=== PATIENT | male | born 1985 | race Caucasian/White ===

== ENCOUNTER 2020-01-31 12:32 | Emergency (ER) | payer BC ==
[2020-01-31] MEDS ORDERED: GI Cocktail Oral Solution 30 ML PO ONE (13:02)
--- NOTE | 2020-01-31 13:02 | EDM.PDOC ---
ED HPI GENERAL MEDICAL PROBLEM - General Chief Complaint: Chest Pain Stated Complaint: CHEST PAINS STARTED HEARTBURN Time Seen by Provider: 01/31/20 12:51 Source of Information: Reports: Patient, RN History Limitations: Reports: No Limitations - History of Present Illness INITIAL COMMENTS - FREE TEXT/NARRATIVE: 34-year-old male who presents to the ER with complaints of chest pain 9 hours. Patient reports chest pain began at 3 AM and it felt more like a heartburn. He took at tums and his discomfort subsided a little bit. Pain is rated 5/10 with 10 being the worst and described as pressure which is nonradiating. He reports vomiting twice prior to ER visit. He denies nausea at this time. He reports eating meat balls and noodles with 6 cans of erlinda coke last night. Denies any personal or family medical history of heart problems. he reports that he had a seizure when drinking before gi and was seen in the ER at which point he was told he had hypokalemia. He reports this was treated with bananas but he never went back into the clinic for recheck. he denies shortness of breath, palpitations, fever, chills, leg swelling at this time. Onset: Today Duration: Hour(s): (9 hours ago) Location: Reports: Chest Quality: Reports: Pressure Severity: Moderate Worsens with: Reports: None Associated Symptoms: Reports: Chest Pain Middle Chest Pain Score (Numeric/FACES): 7 - Related Data Allergies Allergy/AdvReac Type Severity Reaction Status Date / Time No Known Allergies Allergy Verified 01/31/20 12:44 Home Meds: Home Meds . [No Known Home Meds] 01/31/20 [History] ED ROS GENERAL - Review of Systems Review Of Systems: Comprehensive ROS is negative, except as noted in HPI. ED EXAM, GENERAL - Physical Exam Exam: See Below Exam Limited By: No Limitations General Appearance: Alert, Mild Distress Ears: Normal External Exam, Normal Canal, Hearing Grossly Normal, Normal TMs Nose: Normal Inspection, Normal Mucosa, No Blood Throat/Mouth: Normal Inspection, Normal Lips, Normal Oropharynx, No Airway Compromise Head: Atraumatic, Normocephalic Neck: Normal Inspection, Supple, Non-Tender, Full Range of Motion Respiratory/Chest: No Respiratory Distress, Lungs Clear, Normal Breath Sounds, No Accessory Muscle Use, Chest Non-Tender Cardiovascular: Normal Peripheral Pulses, Regular Rate, Rhythm, No Edema, No Gallop, No JVD, No Murmur, No Rub Peripheral Pulses: 2+: Dorsalis Pedis (L), Dorsalis Pedis (R) GI/Abdominal: Normal Bowel Sounds, Soft, Non-Tender, No Organomegaly, No Distention, No Abnormal Bruit, No Mass (Male) Exam: Deferred Rectal (Males) Exam: Deferred Back Exam: Normal Inspection Extremities: Normal Inspection, Normal Range of Motion, Non-Tender, No Pedal Edema Neurological: Alert, Oriented, Normal Cognition, Normal Gait Psychiatric: Normal Affect, Normal Mood Skin Exam: Warm, Intact Course - Vital Signs Last Recorded V/S: Last Vital Signs Temp 97.4 F 01/31/20 12:45 Pulse 63 01/31/20 12:45 Resp 16 01/31/20 12:45 BP 116/73 01/31/20 12:45 Pulse Ox 100 01/31/20 12:45 - Orders/Labs/Meds Orders: Active Orders 24 hr Category Date Time Status EKG Documentation Completion [RC] STAT Care 01/31/20 12:46 Active Labs: Laboratory Tests 01/31/20 01/31/20 01/31/20 Range/Units 12:43 12:43 12:43 WBC 13.6 H (5.0-10.0) 10^3/uL RBC 4.81 (4.6-6.2) 10^6/uL Hgb 15.1 (14.0-18.0) g/dL Hct 42.2 (40.0-54.0) % MCV 87.7 (80-100) fL MCH 31.4 (27.0-34.0) pg MCHC 35.8 H (33.0-35.0) g/dL Plt Count 260 (150-450) 10^3/uL Neut % (Auto) 84.8 H (42.2-75.2) % Lymph % (Auto) 9.2 L (20.5-50.1) % Story % (Auto) 5.8 (2-8) % Eos % (Auto) 0.1 L (1.0-3.0) % Baso % (Auto) 0.1 (0.0-1.0) % Sodium 137 (136-145) mmol/L Potassium 3.6 (3.5-5.1) mmol/L Chloride 100 (98-107) mmol/L Carbon Dioxide 30 (21-32) mmol/L Anion Gap 10.6 (7-13) mEq/L BUN 12 (7-18) mg/dL Creatinine 0.95 (0.70-1.30) mg/dL Est Cr Clr Drug Dosing 79.52 mL/min Estimated GFR (MDRD) > 60 BUN/Creatinine Ratio 12.6 (No establ ref range) Glucose 134 H (74-99) mg/dL Calcium 9.4 (8.5-10.1) mg/dL Total Bilirubin 0.4 (0.2-1.0) mg/dL AST 16 (15-37) U/L ALT 28 (16-63) U/L Alkaline Phosphatase 67 (46-116) U/L Troponin I < 0.017 (0.000-0.056) ng/mL Total Protein 6.9 (6.4-8.2) g/dL Albumin 4.1 (3.4-5.0) g/dL Globulin 2.8 Albumin/Globulin Ratio 1.5 Ethyl Alcohol < 3 (0) mg/dL Meds: Medications Discontinued Medications Generic Name Dose Route Start Last Admin Trade Name Freq PRN Reason Stop Dose Admin Al Hydroxide/Mg Hydroxide 30 ml 01/31/20 13:02 01/31/20 13:11 Gi Cocktail PO 01/31/20 13:03 30 ml ONETIME ONE Administration - Re-Assessments/Exams Free Text/Narrative Re-Assessment/Exam: Reviewed exam findings, EKG and lab results with patient. GI cocktail administered with relief. Encouraged him to quit drinking. Prilosec 20 mg administered with a script send home with patient. Symptoms to return to the ER reviewed with patient. Follow up with PCP. Departure - Departure Time of Disposition: 13:40 Disposition: Home, Self-Care 01 Condition: Good Clinical Impression: Gastroesophageal reflux disease Qualifiers: Esophagitis presence: without esophagitis Qualified Code(s): K21.9 - Gastro- esophageal reflux disease without esophagitis Instructions: Gastroesophageal Reflux Disease, Adult, [id number] Forms: ED Department Discharge Additional Instructions: Encouraged him to quit drinking. Prilosec 20 mg administered with a script send home with patient. Symptoms to return to the ER reviewed with patient. Follow up with PCP. Sepsis Event Note (ED) - Evaluation Sepsis Screening Result: No Definite Risk - Focused Exam Vital Signs: Vital Signs Temp Pulse Resp BP Pulse Ox 01/31/20 12:45 97.4 F 63 16 116/73 100 - My Orders Last 24 Hours: My Active Orders 01/31/20 12:46 EKG Documentation Completion [RC] STAT - Assessment/Plan Last 24 Hours: My Active Orders 01/31/20 12:46 EKG Documentation Completion [RC] STAT
[2020-01-31 13:11] LABS: ANION GAP 10.6 mEq/L (7-13); CHLORIDE,CL 100 mmol/L (98-107); SODIUM,NA 137 mmol/L (136-145)
--- NOTE | 2020-01-31 13:18 | CR ---
PROCEDURE INFORMATION: Exam: XR Chest, 1 View Exam date and time: 01/31/2020 12:51 PM Age: 34 years old Clinical indication: Other: Chest pain TECHNIQUE: Imaging protocol: XR of the chest Views: 1 view. COMPARISON: No relevant prior studies available. FINDINGS: Lungs: Bilateral calcified pulmonary granulomata. Pleural space: Unremarkable. No pleural effusion. No pneumothorax. Heart/Mediastinum: Unremarkable. No cardiomegaly. Bones/joints: Unremarkable. IMPRESSION: Bilateral calcified pulmonary granulomata. Chest is otherwise normal.
[2020-01-31] MEDS ORDERED: Omeprazole 20 MG Cap.CR PO ONE (13:41)
== END 2020-01-31 14:14 | disposition home or self-care (01) ==
LOC: DL.ED 12:32
DX: K21.9 Gastro-esophageal reflux disease without esophagitis (principal)
CPT/HCPCS: 36415; 71045; 80053; 80307; 84484; 85025; 93005; 99285; A9270

== ENCOUNTER 2022-01-30 05:12 | Emergency (ER) | payer BC ==
[2022-01-30] MEDS ORDERED: Amoxicillin/Clavulanate K 875-125 MG Tab PO ONE ×2 (05:13→06:41)
[2022-01-30] MEDS ORDERED: Sodium Chloride 0.9% 10 ML Syringe FLUSH PRN (05:34)
[2022-01-30] MEDS ORDERED: Ondansetron 4 MG/2 ML SDV IVPUSH ONE (05:39)
[2022-01-30] MEDS ORDERED: Sodium Chloride 0.9% 1,000 ML IV ONE (05:39)
[2022-01-30 06:22] LABS: ANION GAP 12.9 mEq/L (7-13)
[2022-01-30] MEDS ORDERED: GI Cocktail Oral Solution 30 ML PO ONE (06:45)
[2022-01-30] MEDS ORDERED: Amoxicillin/Clavulanate K 875-125 MG Tab ONE (06:57)
== END 2022-01-30 06:58 | disposition home or self-care (01) ==
LOC: DL.ED 05:12
DX: R07.89 Other chest pain (principal); K04.7 Periapical abscess without sinus; Z87.891 Personal history of nicotine dependence
CPT/HCPCS: 36415; 80053; 83690; 84484; 85025; 93005; 96361; 96374; 99285; A9270; J2405; J7030